=== PATIENT | male | born 1995 | race Caucasian/White ===

== ENCOUNTER 2022-01-23 14:17 | Emergency (ER) | payer OTHER ==
[~2022-01-23] VITALS: Ht 177.8 cm; Wt 77.0 kg
[2022-01-23 14:25] VITALS: BP 134/84
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
[2022-01-23 21:34] LABS: HEPATITIS C ANTIBODY C Non-Reactive (Non-Reactive)
== END 2022-01-23 15:26 | disposition home or self-care (01) ==
LOC: EDUNIT# 14:17 → ER 14:23
DX: S00.81XA Abrasion of other part of head, initial encounter (principal); F17.210 Nicotine dependence, cigarettes, uncomplicated; Z28.310 Unvaccinated for COVID-19; Y04.0XXA Assault by unarmed brawl or fight, initial encounter; Y92.59 Other trade areas as the place of occurrence of the external cause; Y99.0 Civilian activity done for income or pay
CPT/HCPCS: 36415; 80074; 87389